=== PATIENT | male | born 1930 | race Caucasian/White ===

== ENCOUNTER 2017-01-08 21:55 | Observation (INO) | payer OTHER ==
[~2017-01-08] VITALS: Ht 175.3 cm; Wt 109.0 kg
[2017-01-08] MEDS ORDERED: HYDROmorphone INJ 1 MG/ML SYR IV STA (22:57)
--- NOTE | 2017-01-08 22:59 | EMERGENCY ROOM VISIT NOTE ---
History Report prepared by Marcelino: Mary Hyde Under the Supervision of: Dr. Melecio Bernal M.D. First contact with patient: 22:51 Chief Complaint: KNEEPAIN Stated Complaint: KNEE PAIN History of Present Illness The patient is a 86 year old male who presents to the Emergency Room with complaints of sudden right knee pain beginning shortly prior to arrival. He states that he fell on his knee. The patient denies hitting his head when he fell, and he also denies hip pain. 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 He also states that he has a history of a broken patella. He states that he is not on any blood thinners. He denies having other symptoms. Per his family, the patient has a history of a suicidal attempt on oxycodone. Source of History: patient, family Onset: shortly prior to arrival Position: knee (right) Quality: other (fall) Timing: other (sudden) Associated Symptoms: No fevers Review of Systems See HPI for pertinent positives & negatives. A total of 10 systems reviewed and were otherwise negative. Past Medical & Surgical Medical Problems: (1) Tibia/fibula fracture Surgical Problems: (1) Quadriceps muscle strain Family History No pertinent family history stated. Social History Smoking Status: Never Smoker Occupation Status: retired Current/Historical Medications Scheduled Diclofenac (Voltaren), 75 MG PO BID Docusate Sodium (Stool Softener), 100 MG PO DAILY Fentanyl (Fentanyl), Unknown Dose TD DIRECTED Fluoxetine (Prozac), 20 MG PO DAILY Furosemide (Lasix), 40 MG PO QAM Gabapentin (Neurontin), 300 MG PO QID Meloxicam (Mobic), 15 MG PO QPM Multivitamin (Multivitamin), 1 TAB PO DAILY Omeprazole (Prilosec), 40 MG PO HS Tamsulosin Hcl (Flomax), 0.4 MG PO HS Temazepam (Restoril), 30 MG PO HS Allergies Coded Allergies: No Known Allergies (Unverified , 01/09/17) Physical Exam Vital Signs Date Time Temp Pulse Resp B/P (MAP) Pulse Ox O2 Delivery O2 Flow Rate FiO2 01/09/17 01:08 76 16 161/86 99 Room Air 01/08/17 22:20 79 01/08/17 22:06 36.7 82 16 160/94 99 Room Air Physical Exam GENERAL: Patient is uncomfortable appearing and in moderate distress. HEENT: No acute trauma, normocephalic atraumatic, mucous membranes moist, no nasal congestion, no scleral icterus. NECK: No stridor, no adenopathy, no meningismus, trachea is midline. LUNGS: No dyspnea. Clear to auscultation and equal bilaterally. No wheeze, no rhonchi. HEART: Regular rate and rhythm. No murmurs, rubs, gallops appreciated. ABDOMEN: Soft, nontender, bowel sounds positive, no masses appreciated, no peritonitis. BACK: No midline tenderness, no CVA tenderness EXTREMITIES:Deformity of right knee with extensive swelling and bruising anteriorly. Severe pain with range of motion. Tenderness to palpation of right medial malleolus and pain with range of motion of ankle. NEUROLOGIC: Alert and oriented, no acute motor or sensory deficits, no focal weakness, cranial nerves grossly intact. SKIN: No rash, no jaundice, no diaphoresis. Medical Decision & Procedures ER Provider Diagnostic Interpretation: X-ray: Multiple view of knee, tibia, fibula, and ankle: Proximal and distal fibular fracture. Medial malleolus fracture. Appears to be mild separation of tibial plateau from anterior knee prostheses. Questionable bending of prostheses distally. No acute dislocations. Laboratory Results 01/08/17 20:13 Red Blood Count 4.47, Mean Corpuscular Volume 94.2, Mean Corpuscular Hemoglobin 31.5, Mean Corpuscular Hemoglobin Concent 33.5, Mean Platelet Volume 9.3, Neutrophils (%) (Auto) 68.4, Lymphocytes (%) (Auto) 23.0, Monocytes (%) (Auto) 6.8, Eosinophils (%) (Auto) 1.3, Basophils (%) (Auto) 0.2, Neutrophils # (Auto) 6.68, Lymphocytes # (Auto) 2.24, Monocytes # (Auto) 0.66, Eosinophils # (Auto) 0.13, Basophils # (Auto) 0.02 01/08/17 20:13 Test 01/08/17 20:13 White Blood Count 9.76 K/uL (4.8-10.8) Red Blood Count 4.47 M/uL (4.7-6.1) Hemoglobin 14.1 g/dL (14.0-18.0) Hematocrit 42.1 % (42-52) Mean Corpuscular Volume 94.2 fL (80-100) Mean Corpuscular Hemoglobin 31.5 pg (25-34) Mean Corpuscular Hemoglobin Concent 33.5 g/dl (32-36) Platelet Count 376 K/uL (130-400) Mean Platelet Volume 9.3 fL (7.4-10.4) Neutrophils (%) (Auto) 68.4 % Lymphocytes (%) (Auto) 23.0 % Monocytes (%) (Auto) 6.8 % Eosinophils (%) (Auto) 1.3 % Basophils (%) (Auto) 0.2 % Neutrophils # (Auto) 6.68 K/uL (1.4-6.5) Lymphocytes # (Auto) 2.24 K/uL (1.2-3.4) Monocytes # (Auto) 0.66 K/uL (0.11-0.59) Eosinophils # (Auto) 0.13 K/uL (0-0.5) Basophils # (Auto) 0.02 K/uL (0-0.2) RDW Standard Deviation 50.2 fL (36.4-46.3) RDW Coefficient of Variation 14.7 % (11.5-14.5) Immature Granulocyte % (Auto) 0.3 % Immature Granulocyte # (Auto) 0.03 K/uL (0.00-0.02) Anion Gap 9.0 mmol/L (3-11) Est Creatinine Clear Calc Drug Dose 31.7 ml/min Estimated GFR () 33.8 Estimated GFR (Non- 29.1 BUN/Creatinine Ratio 18.9 (10-20) Calcium Level 9.3 mg/dl (8.5-10.1) Chemistry Specimen Hemolysis Medications Administered Medications (Trade) Dose Ordered Sig/Marybeth Route Start Time Stop Time Status Last Admin Dose Admin Hydromorphone HCl (Dilaudid Inj) 1 mg NOW STAT IV 01/08/17 22:57 01/08/17 22:59 DC 01/08/17 23:05 1 MG ED Course 2255: The patient was evaluated in room C1. A complete history and physical exam was performed. 2257: Ordered Dilaudid Inj 1 mg IV. 0020: I updated the patient on his results, and discussed the treatment plan. 0040: Discussed the patient's case with Dr. Lima. The patient will be evaluated for further treatment and disposition. 0055: Dr. Lima asked that I talk to orthopedics. I checked on the patient and his family left because they could not stay here any longer. 0100: Discussed the patient's case with Dr. Whittington. Dr. Whittington agrees with immobilization and likely no surgical invention while here. He will be admitted to medicine. 0135: Dr. Whittington is at bedside. Medical Decision Differentials include: fracture, dislocation, contusion, and ligamentous injury. 86 yr old male s/p twist/fall to right lower leg without head/neck injury not other injuries. No TTP over hips. Clear swelling/bruising anterior right lower knee. TTP over ankle as well. Multiple fractures as noted in imaging. Ortho in to evaluate and will immobilize for now. Family unable to take him home and with his polio history and previous surgeries he will have significant ambulatory issues, on top of fact that with recent OD history I am a bit anxious about just sending him home with narcotics. As he can not ambulate and family unable to get him home will bring in for further work-up/monitoring/ evaluation. Basic labs reveal moderate renal insufficiency though this may be chronic and will defer to hospitalist for further evaluation. Medication Reconcilliation Current Medication List: was personally reviewed by me Blood Pressure Screening Patient's blood pressure: Elevated blood pressure will be monitored by hospitalist. Consults Time Called: 29 Consulting Physician: Dr. Lima - [facility] Returned Call: [phone] Discussed the patient's case. The patient will be evaluated for further treatment and disposition. Additional Consults: Time Called: 51 Consulted Physician: Dr. Whittington-[facility] Returned Call: [phone] Additional Comments: Discussed the patient's case with Dr. Whittington. Dr. Whittington agrees with immobilization and likely no surgical invention while here. He will be admitted to medicine. Impression Primary Impression: Knee fracture Additional Impression: Ankle fracture Scribe Attestation The scribe's documentation has been prepared under my direction and personally reviewed by me in its entirety. I confirm that the note above accurately reflects all work, treatment, procedures, and medical decision making performed by me. Departure Information Dispostion Being Evaluated By Hospitalist Patient Instructions [facility] Problem Qualifiers
[2017-01-09] MEDS ORDERED: TAMS0.4C38 PO (00:35)
[2017-01-09] MEDS ORDERED: FLUO20CA35 PO (00:35)
[2017-01-09] MEDS ORDERED: DRGTP50 TD (00:35)
[2017-01-09] MEDS ORDERED: OMEP40CA41 PO (00:35)
[2017-01-09] MEDS ORDERED: TEMA30CA4 PO (00:35)
[2017-01-09] MEDS ORDERED: FRS/40 PO (00:35)
[2017-01-09] MEDS ORDERED: MULT-506 PO (00:35)
[2017-01-09] MEDS ORDERED: MELO15TA10 PO (00:35)
[2017-01-09] MEDS ORDERED: DICL-201 PO (00:35)
[2017-01-09] MEDS ORDERED: GABA-113 PO (00:35)
[2017-01-09] MEDS ORDERED: DOCU100T7 PO (00:37)
[2017-01-09] MEDS ORDERED: ONDANSETRON INJ 2 MG/ML 2 ML VIAL IV PRN (01:30)
[2017-01-09 01:41] VITALS: Ht 175.3 cm; Wt 109.0 kg
--- NOTE | 2017-01-09 02:36 | ORTHOPEDIC CONSULTATION ---
DATE OF CONSULTATION: 01/08/2017 CHIEF COMPLAINT: Right leg pain. HISTORY OF PRESENT ILLNESS: An 86-year-old male who was brought to the Emergency Department as his family was traveling to [facility] to get to a camp. The patient states that he fell backwards, trapping his leg underneath the car and felt pain in his ankle and his knee. He has a very complicated right knee history that involves multiple procedures including multiple attempts at extensor mechanism reconstruction and quadriceps reconstruction, has a history of knee replacement with stems and history of patella fracture. He notes that at this point in time he has no significant hip pain. He denies any head or neck injury. PAST MEDICAL HISTORY: Remarkable for: 1. Multiple knee surgeries. 2. History of suicidal attempt with oxycodone. REVIEW OF SYSTEMS: Reveals no chest pain, shortness of breath, fever, chills, nausea or vomiting. FAMILY HISTORY: Noncontributory. Family is not here with him. SOCIAL HISTORY: He does not smoke. He is retired. PREADMISSION MEDICATIONS: Include diclofenac 75 mg p.o. b.i.d., Colace 100 mg p.o. b.i.d., fentanyl unknown dose, Prozac 20 mg daily, Lasix 40 mg daily, gabapentin 300 mg q.i.d., meloxicam 15 mg daily, multivitamin, Prilosec 40 mg at bedtime, Flomax 0.4 mg at bedtime, Restoril 30 mg p.o. at bedtime. ALLERGIES: None. PERTINENT PHYSICAL EXAMINATION: GENERAL: Reveals the patient can converse well. He denies any head trauma. HEENT: Without trauma. CHEST: Nontender. ABDOMEN: Soft, nontender. EXTREMITIES: Both upper extremities without any pain. Left lower extremity without any pain. Right lower extremity reveals no obvious deformity. Knee is flexed, has bruising over the anterior proximal tibia. Has pain along the medial and lateral malleoli. Neurovascular check is grossly normal. Achilles tendon is normal. Anterior and posterior tibial tendons normal. EHL and FHL intact. X-RAYS: Multiple views taken today of the ankle reveal a Bone B type fracture pattern, nondisplaced. There is comminution of the medial malleolus. AP and lateral of the tibia reveals no shaft fracture. AP and lateral of the knee reveals a revision-type stem implant, has extensor mechanism abnormalities with scarring and patella baja. There is tubercle calcification which is of unclear significance based on the multiple procedures he has had. He can straighten the knee without any difficulty to about 15 degrees of flexion. Log rolling of the leg does not produce any significant groin pain. ASSESSMENT: Bone B type fracture pattern of the ankle, nonoperative candidate, minimally displaced. At this point in time, treat with coaptation splint for swelling and then ultimately in a cast when he gets back home. With respect to his extensor mechanism, he more than likely has either a soft tissue disruption of his previous reconstruction or has a bony avulsion. He would need to have old x-rays compared with. At this point in time, suggest treatment in a knee immobilizer for this extensor mechanism injury. Do not suggest any surgical treatment here. He could be transferred back to home and have him taken care of by his home orthopedist. They would be able to compare x-rays and determine whether there is any change in the implant. The logic on this is also the fact that this implant is not available here at this hospital, and if there are any issues, he would need to have things adjusted or changed. At the same time, if he decided to have a surgical procedure, based on their findings, it would be more appropriate for it to be done in his home location. Deep vein thrombosis prophylaxis per medicine. Follow up with me on a p.r.n. basis. ADDENDUM: PAST MEDICAL AND PAST SURGICAL HISTORY: Remarkable for chest surgery on right, low back surgery for spinal stenosis, left leg calf surgery for some type of soft tissue mass, multiple knee procedures including partial patellectomy, extensor mechanism augmentation and reconstruction with hamstring transfer, knee replacement. Advised using anti-inflammatories, not to mix Voltaren and Mobic. Suggest discontinue one completely. Coaptation splint applied, knee immobilizer applied , the patient much more comfortable. Allow full diet. Once again, also has a history of polio in the right leg and describes having drop locked hinges braced in the past used for his leg weakness. This clearly is a chronic problem aggravated by his recent fall, and again, at this point in time without old records, nonsurgical management is indicated, particularly with the complexity of his knee replacement, his hamstring transfers, his partial patellectomy in the past, and weakness of his leg with polio. Suggest nonsurgical management for all areas. Transport back home. No need to remain here. From orthopedic perspective, can be discharged when transportation to home arranged. Allow food as tolerated. MTDD
[2017-01-09 02:41] LABS: BASO % 0.2 %; BASO ABS # 0.02 K/uL (0-0.2); COMPLETE YES; EOS % 1.3 %; HEMATOCRIT 42.1 % (42-52); IG% 0.3 %; LYMPH ABS # 2.24 K/uL (1.2-3.4); MEAN CELL VOLUME 94.2 fL (80-100); MEAN CORPUSCULAR HEMOGLOBIN 31.5 pg (25-34); MEAN CORPUSCULAR HGB CONC 33.5 g/dl (32-36); MEAN PLATELET VOLUME 9.3 fL (7.4-10.4); MONO % 6.8 %; NEUT % 68.4 %; PLATELET COUNT 376 K/uL (130-400); RED BLOOD COUNT 4.47 M/uL (4.7-6.1); WHITE BLOOD COUNT 9.76 K/uL (4.8-10.8)
[2017-01-09 03:00] LABS: BUN/CREATININE RATIO 18.9 (10-20); CALCIUM 9.3 mg/dl (8.5-10.1)
[2017-01-09 03:10] VITALS: BP 141/95; PULSE 70; TEMP 36.9; O2SAT 92
[2017-01-09] MEDS: LACTATED RINGER'S 1000ML 1,000 ML IV SCH ×2 (03:21→17:15)
[2017-01-09] MEDS: ACETAMINOPHEN 325 MG TAB PO PRN ×2 (03:26→17:21)
[2017-01-09] MEDS ORDERED: IV FLUIDS COMPLETED PRN (03:45)
--- NOTE | 2017-01-09 03:51 | History and Physical ---
History & Physical Date & Time of Service: Jan 09, 2017 at 02:47 Chief Complaint: Knee Pain Primary Care Physician: No Doctor, Assigned History of Present Illness Source: patient, hospital records Mr Martínez is an 86 year old male with pertinent history of polio in his right leg aged 10 years old who presents to the ER after falling into his car. He denies any prodromal symptoms including shortness of breath, chest pain, dizziness before the fall. He caught his right ankle on the car and tripped up so that his ankle was hyper plantar flexed and his right knee was flexed ( beyond its normal poor range of motion). After which he is mainly complaining of pain in his right ankle and knee (distal to patellar). He denies hitting his head, neck, back or hip/groin pain. He denies any current chest pain, shortness of breath, dizziness, wrist pain, change in vision, speech or hearing. He has a history of multiple knee surgeries including total knee replacement, revisions and quadriceps transplant. As from the ER note his family report the patient previously had a suicide attempt on oxycodone. Past Medical/Surgical History Surgical Problems: (1) Quadriceps muscle strain Status: Resolved Family History Noncontributory Social History Smoking Status: Former Smoker Occupational Status: retired Immunizations History of Influenza Vaccine: Unknown History of Tetanus Vaccine?: Unknown History of Pneumococcal: Unknown History of Hepatitis B Vaccine: Unknown Multi-Drug Resistant Organisms History of MDRO: No Allergies Coded Allergies: No Known Allergies (Unverified , 01/09/17) Home Medications Scheduled Aspirin (Aspirin 81), 81 MG PO BID Docusate Sodium (Stool Softener), 100 MG PO DAILY Fentanyl (Fentanyl), Unknown Dose TD DIRECTED Fluoxetine (Prozac), 20 MG PO DAILY Furosemide (Lasix), 40 MG PO QAM Gabapentin (Neurontin), 300 MG PO QID Multivitamin (Multivitamin), 1 TAB PO DAILY Omeprazole (Prilosec), 40 MG PO HS Tamsulosin Hcl (Flomax), 0.4 MG PO HS Temazepam (Restoril), 30 MG PO HS Review of Systems Constitutional: No fever, No chills Eyes: No worsening of vision ENT: + problem reported (dry throat), No hearing loss Respiratory: No cough, No shortness of breath Cardiovascular: No chest pain, No orthopnea, No edema Abdomen: No pain, No nausea, No vomiting, No diarrhea, No constipation, No GI bleeding Musculoskeletal: + joint pain, + muscle pain Genitourinary - Male: No hematuria Hematologic / Lymphatic: No abnormal bleeding/bruising Integumentary: No rash, No itch Physical Exam Vital Signs Date Time Temp Pulse Resp B/P (MAP) Pulse Ox O2 Delivery O2 Flow Rate FiO2 01/09/17 02:17 75 16 164/71 99 01/09/17 01:41 Room Air 01/09/17 01:08 76 16 161/86 99 Room Air 01/08/17 22:20 79 01/08/17 22:06 36.7 82 16 160/94 99 Room Air General Appearance: WD/WN, no apparent distress Head: normocephalic, atraumatic Eyes: normal inspection (pupils equal), EOMI Respiratory/Chest: chest non-tender, lungs clear, normal breath sounds, no respiratory distress, no accessory muscle use Cardiovascular: regular rate, rhythm, no murmur, normal peripheral pulses Abdomen/GI: normal bowel sounds, non tender, soft Extremities/Musculoskelatal: no calf tenderness, normal capillary refill, + pedal edema (1+ b/l ankles), + pertinent finding (bruising over right patella tendon with significant pain on passive flex/ext of right knee, pain on lateral and medial malleolus) Neurologic/Psych: no motor/sensory deficits (neurologically intact distal to fracture), alert, oriented x 3 Skin: normal color, warm/dry, no rash Diagnostics Laboratory Results Results Past 24 Hours Test 01/08/17 20:13 Range/Units White Blood Count 9.76 4.8-10.8 K/uL Red Blood Count 4.47 4.7-6.1 M/uL Hemoglobin 14.1 14.0-18.0 g/dL Hematocrit 42.1 42-52 % Mean Corpuscular Volume 94.2 80-100 fL Mean Corpuscular Hemoglobin 31.5 25-34 pg Mean Corpuscular Hemoglobin Concent 33.5 32-36 g/dl Platelet Count 376 130-400 K/uL Mean Platelet Volume 9.3 7.4-10.4 fL Neutrophils (%) (Auto) 68.4 % Lymphocytes (%) (Auto) 23.0 % Monocytes (%) (Auto) 6.8 % Eosinophils (%) (Auto) 1.3 % Basophils (%) (Auto) 0.2 % Neutrophils # (Auto) 6.68 1.4-6.5 K/uL Lymphocytes # (Auto) 2.24 1.2-3.4 K/uL Monocytes # (Auto) 0.66 0.11-0.59 K/uL Eosinophils # (Auto) 0.13 0-0.5 K/uL Basophils # (Auto) 0.02 0-0.2 K/uL RDW Standard Deviation 50.2 36.4-46.3 fL RDW Coefficient of Variation 14.7 11.5-14.5 % Immature Granulocyte % (Auto) 0.3 % Immature Granulocyte # (Auto) 0.03 0.00-0.02 K/uL Impression Assessment and Plan 86 year old male presents with ankle fracture s/p mechanical fall Bone B type fracture of right ankle - appreciate orthopedic recommendations - conservative management with knee immobilizer, non weight bearing on that leg Fall - history of multiple falls due to chronic pain in his legs and buckling - no concerning features to suggest cardiac or neurological syncope/presyncope Attending Addendum: I have physically seen and examined this patient, have directed the resident's medical activities, and agree with the H&P as noted above with the following exceptions as noted. The patient is awake, alert and oriented 3, well-developed and well-nourished, normocephalic and atraumatic, lying in bed and in no acute distress while lying still. HEENT--PERRL, EOMI, mucous membranes and oropharynx dry. Neck--supple, no JVD or bruits, thyroid normal, trachea midline, no adenopathy. Heart--normal S1 and S2, no extra beats, no murmurs, rubs or gallops. Lungs--clear bilaterally with good air movement, no respiratory distress, no accessory muscle use. Abdomen--normal bowel sounds and soft, nontender and nondistended, no hernias or masses, no organomegaly. Extremities--no cyanosis, clubbing or edema. There are good distal pulses b/l. Dermatologic--normal skin turgor, normal color, warm and dry, no abnormal lymph nodes, no rash. Neurologic--cranial nerves II through XII grossly intact, motor and sensory examination normal. Rheumatologic--reproducible pain over right anterior tibial tuberosity, and medial and lateral malleolus of right ankle. He is a is a Psychiatric--normal affect. Assessment and Plan: Right ankle fracture/status post right total knee arthroplasty with loosening-- Admitted to the medical floor overnight for pain control. Conservative management with knee immobilizer, nonweightbearing, as per orthopedic recommendation. Definitive therapy by his [facility] orth[facility]ist when he returns there tomorrow. Chronic pain management-- Continue fentanyl, gabapentin and Mobic. GERD-- Change omeprazole to pantoprazole. BPH-- Continue tamsulosin 0.4 mg by mouth at bedtime. Insomnia/depression-- Continue Restoril 30 mg by mouth at bedtime and fluoxetine 20 mg by mouth daily. Fluid balance-- Hold furosemide. Level of Care Med/Surg Advanced Directives Existing Advance Directive: No Existing Living Will: Yes Existing Power of Field Producer: Yes Resuscitation Status FULL RESUSCITATION VTE Prophylaxis VTE Risk Assessment Done? Y/N: Yes Risk Level: Moderate Given or contraindicated: Enoxaparin (Lovenox)SQ Social Service Consult None Apply
[2017-01-09 07:00] VITALS: BP 134/81; PULSE 63; TEMP 36.6; O2SAT 94
--- NOTE | 2017-01-09 07:09 | DIAGNOSTIC IMAGING REPORT ---
R TIBIA/FIBULA 2 VIEWS ROUTINE, R KNEE 1 OR 2 VIEWS ROUTINE HISTORY: 86 years-old Male right knee-ankle pain/swelling s/p fall. ho tibial/patellar fx acute right leg pain status post fall COMPARISON: None available TECHNIQUE: 2 views of the right knee and 2 views of the right tibia and fibula. FINDINGS: KNEE: Hinged right knee arthroplasty is present. The bones are moderately demineralized. There is acute periprosthetic fracture with 4.7 cm bone fragment of the anterolateral proximal tibia displaced proximally x 1.5 cm. Moderate soft tissue swelling is noted about the knee with large joint effusion. TIBIA/FIBULA: Acute periprosthetic fracture of the proximal tibia as above. Additionally, there is an acute oblique fracture of the distal fibular diaphysis which is nondisplaced. There is a linear lucency of the medial malleolus seen on the frontal view oh suspicious for acute nondisplaced fracture. There is moderate soft tissue swelling about the lower extremity. Degenerative changes are seen throughout the hindfoot. IMPRESSION: 1. Hinged right knee arthroplasty in place with an acute periprosthetic fracture of the proximal tibia as above with soft tissue swelling and large knee joint effusion. 2. Acute nondisplaced oblique fracture of the distal fibular diaphysis. 3. Linear lucency of the medial malleolus suspicious for acute nondisplaced fracture. The above report was generated using voice recognition software. It may contain grammatical, syntax or spelling errors. Electronically signed by: Reza Stallworth M.D. 01/09/2017 7:08 AM Dictated Date/Time: 01/09/2017 7:02 AM
--- NOTE | 2017-01-09 07:15 | DIAGNOSTIC IMAGING REPORT ---
L ANKLE MIN 3 VIEWS ROUTINE, R ANKLE MIN 3 VIEWS ROUTINE HISTORY: 86 years-old Male left lateral malleolus pain s/p fall ?# Acute bilateral ankle pain status post fall COMPARISON: Right tibia and fibula radiographs of same day TECHNIQUE: 3 views of the right ankle and 3 views of the left ankle FINDINGS: LEFT: The bones are mildly demineralized. No acute fracture, or dislocation identified. There is spurring about the calcaneus. Mild midfoot degenerative changes. Linear dystrophic calcifications in the region of the plantar fascia suggest chronic plantar fasciitis. Vascular calcifications are seen. Mild diffuse soft tissue swelling. RIGHT: Acute oblique mildly comminuted fracture of the distal fibular diaphysis is noted with 2 mm lateral displacement fracture extends to the level of the ankle mortise and into the distal tibiofibular syndesmosis. Comminuted medial malleolus fracture is present with approximately 2 mm medial displacement. No definite talar fracture identified. Large ankle joint effusion with moderate soft tissue swelling. Basilar calcifications are noted. There is spurring about the calcaneus with dystrophic calcifications seen within the region of the plantar fascia compatible with chronic plantar fasciitis. IMPRESSION: 1. Acute comminuted minimally displaced right medial malleolus fracture. 2. Acute minimally displaced comminuted oblique fracture of the distal right fibular shaft extends to level of the ankle mortise into the distal tibiofibular syndesmosis. 3. No acute fracture or dislocation identified within the left ankle. The above report was generated using voice recognition software. It may contain grammatical, syntax or spelling errors. Electronically signed by: Reza Stallworth M.D. 01/09/2017 7:13 AM Dictated Date/Time: 01/09/2017 7:09 AM
--- NOTE | 2017-01-09 07:19 | DIAGNOSTIC IMAGING REPORT ---
PELVIS/BILATERAL HIP 2 VIEWS HISTORY: 86 years-old Male right knee pain on hip rotation s/p fall ?# Acute right knee pain status post fall COMPARISON: None available TECHNIQUE: AP view of the pelvis with 2 views of the bilateral hips FINDINGS: The bones are mildly demineralized. Severe intervertebral disc space narrowing with endplate spurring and facet arthropathy is seen within the lower lumbar spine. 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 No acute fracture or dislocation identified. IMPRESSION: 1. No acute fracture or dislocation within the pelvis or bilateral hips. 2. 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 The above report was generated using voice recognition software. It may contain grammatical, syntax or spelling errors. Electronically signed by: Reza Stallworth M.D. 01/09/2017 7:17 AM Dictated Date/Time: 01/09/2017 7:14 AM
[2017-01-09] MEDS ORDERED: KETOROLAC TROMETHAMINE 15 MG/ML VIAL IV PRN (07:45)
[2017-01-09] MEDS ORDERED: KETOROLAC TROMETHAMINE 15 MG/ML VIAL IM PRN (07:45)
[2017-01-09] MEDS: CHECK FENTANYL PATCH PLACEMENT SCH ×2 (08:22→15:37)
[2017-01-09] MEDS: GABAPENTIN 300 MG CAP PO SCH ×3 (08:23→17:15)
--- NOTE | 2017-01-09 08:27 | ORTHOPEDICS PROGRESS NOTE ---
DATE: 01/09/2017 SUBJECTIVE: The patient is sitting up in bed, conversing with nurse and converses with me. He is alert and oriented x3. He denies chest pain, shortness of breath, fever, chills, nausea, vomiting or headache. Vital signs are stable. He is afebrile. Complains of pain down at the ankle and about the knee, but that is not severe. He denies any numbness or tingling. Neurovascular check of both lower extremities within normal limits. Additional x-rays taken yesterday of the hip reveal some osteoarthritis. No other issues. LABORATORY WORK: Reveals a hematocrit to be stable at 42. Chemistry does not reveal any significant issues . BUN is high at 38 and creatinine is 2. Orthopedic exam reveals no issues with both upper extremities. Head and neck are fine. Back is fine. Abdomen is soft and nontender. Left lower extremity without any issues of acute trauma. Right lower extremity is in the splint at the ankle and the knee immobilizer. There is nothing new. Neurovascular check of his right lower extremity reveals intact sciatic nerve function and sensation and motor. ASSESSMENT: 1. Complicated patient with a history of poliomyelitis, multiple knee surgeries with periprostatic fracture of his right knee that is minimally displaced. At this point in time, he can transport home for that to have it dealt with. He can have a compare with the x-rays that would reveal some of the difficulty on this case based on the multiple surgeries and extensor mechanism procedures and partial patellectomy that he had. 2. Minimally displaced bimalleolar ankle fracture with intact ankle mortise. At this point in time, this problem will be treated nonsurgically as well. He can be discharged home with that today as well. Plan is to follow up with me on a p.r.n. basis and he has local orthopedist. DVT prophylaxis per medicine. Strict nonweightbearing of right lower extremity with walker. ALEX
[2017-01-09] MEDS ORDERED: FUROSEMIDE 40 MG TAB PO SCH (09:00)
[2017-01-09] MEDS ORDERED: MULTIVITAMIN TAB PO SCH (09:00)
[2017-01-09] MEDS ORDERED: FLUOXETINE HCL 20 MG CAP PO SCH (09:00)
[2017-01-09] MEDS ORDERED: DOCUSATE SODIUM 100 MG CAP PO SCH (09:00)
[2017-01-09] MEDS ORDERED: PANTOprazole SOD 40 MG TAB PO SCH (09:00)
[2017-01-09 10:48] LABS: HEMATOCRIT 35.4 % (42-52); MEAN CELL VOLUME 93.9 fL (80-100); MEAN CORPUSCULAR HGB CONC 33.1 g/dl (32-36); MEAN PLATELET VOLUME 8.4 fL (7.4-10.4); PLATELET COUNT 286 K/uL (130-400); RED BLOOD COUNT 3.77 M/uL (4.7-6.1); WHITE BLOOD COUNT 9.62 K/uL (4.8-10.8)
[2017-01-09 10:58] LABS: PROTHROMBIN TIME (PATIENT) 10.7 SECONDS (9.0-12.0)
[2017-01-09] MEDS ORDERED: HEPARIN SOD 5000 UNIT/0.5 ML CARP SQ SCH (11:00)
[2017-01-09] MEDS ORDERED: ASPI-435 PO ×2 (12:28→12:40)
--- NOTE | 2017-01-09 12:39 | Discharge Instructions ---
Discharge Instructions Date of Service Jan 09, 2017. Admission Reason for Admission: Tibia/Fibula Fracture Discharge Discharge Diagnosis / Problem: Ankle Fracture Discharge Goals Goal(s): Decrease discomfort, Improve function Activity Recommendations Activity Limitations: per Instructions/Follow-up section . Instructions / Follow-Up Instructions / Follow-Up You were admitted to [facility] following a fall onto your right knee and ankle. You sustained an ankle fracture because of this, and also possible displacement or disruption of your previous right knee reconstruction. Due to the fact that we do not have your xrays or surgical history, we advise that you return to [place] and see your usual orthopedist for management. You do not require surgery for your ankle fracture, and have been placed in a coaptation splint for now, to be changed to a cast when you return home. Given the fact that you will be off your feet for the next little while, we recommend you take an 81mg aspirin twice a day to prevent the formation of a blood clot. You can stop taking this once you start moving around again. You can take all your other medications as prescribed. Please also hold your diclofenac and meloxicam until your regular primary care provider rechecks your kidney function tests and they have returned to normal, as your creatinine in the hospital was elevated at 2. Current Hospital Diet Patient's current hospital diet: Regular Diet Discharge Diet Recommended Diet: Regular Diet Pending Studies Studies pending at discharge: no Medical Emergencies . Who to Call and When: Medical Emergencies: If at any time you feel your situation is an emergency, please call 911 immediately. . Non-Emergent Contact Non-Emergency issues call your: Primary Care Provider . . "Provider Documentation" section prepared by Jr Cruz. . VTE Core Measure Inpt VTE Proph given/why not?: Enoxaparin (Lovenox)SQ
[2017-01-09] MEDS ORDERED: ACETAMINOPHEN 500 MG TAB PO SCH (14:00)
[2017-01-09 14:33] VITALS: BP 134/81; PULSE 63; TEMP 36.6; O2SAT 94
[2017-01-09 14:42] VITALS: BP 160/78; PULSE 88; O2SAT 98
--- NOTE | 2017-01-09 15:03 | Discharge Summary ---
Discharge Summary Date of Service Jan 09, 2017. (Jr Cruz M.D.) Discharge Summary Admission Date: Jan 09, 2017 at 01:25 Discharge Date: Jan 09, 2017 Discharge Disposition: Home Principal Diagnosis: Bone B type fracture of right ankle (Jr Cruz M.D.) Medication Reconciliation New Medications: Aspirin (Aspirin 81) 81 Mg Tab 81 MG PO BID, #30 TABS 2 Refills Continued Medications: Docusate Sodium (Stool Softener) 100 Mg Tab 100 MG PO DAILY Fentanyl (Fentanyl) Unknown Strength Tdsy Unknown Dose TD DIRECTED Fluoxetine (Prozac) 20 Mg Cap 20 MG PO DAILY, CAP Furosemide (Lasix) 40 Mg Tab 40 MG PO QAM, TAB Gabapentin (Neurontin) 300 Mg Cap 300 MG PO QID, CAP Multivitamin (Multivitamin) Tab 1 TAB PO DAILY, TAB Omeprazole (Prilosec) 40 Mg Cap 40 MG PO HS, CAP Tamsulosin Hcl (Flomax) 0.4 Mg Cap 0.4 MG PO HS, CAP Temazepam (Restoril) 30 Mg Cap 30 MG PO HS, CAP Discontinued Medications: Diclofenac (Voltaren) 75 Mg Tabcr 75 MG PO BID, TAB WITH FOOD Meloxicam (Mobic) 15 Mg Tab 15 MG PO QPM, TAB Discharge Exam Mr. Martínez reports that he feels well today, but is upset about having sustained another fall. He states his pain is well controlled, and that he is ready to be discharged home to follow up with his orthopedist.He denies chest pain, shortness of breath or cough. Review of Systems: Constitutional: No fever, No chills, No sweats, No weight loss Respiratory: No cough, No sputum, No wheezing Cardiovascular: No chest pain Abdomen: No pain, No nausea, No vomiting, No diarrhea, No constipation Physical Exam: General Appearance: WD/WN, no apparent distress Respiratory/Chest: chest non-tender, lungs clear, normal breath sounds, no respiratory distress, no accessory muscle use Cardiovascular: regular rate, rhythm, no edema, no gallop, no JVD, no murmur Abdomen / GI: non tender, soft (Jr Cruz M.D.) Hospital Course Mr. Martínez was admitted to [facility] due to a fall onto his right knee and ankle. He tripped while entering his car, and sustained a Bone B type fracture of his right ankle. He also has a history of multiple right knee surgeries including a total knee replacement, revisions and a quadriceps transplant. He xrays showed possible displacement/tissue disruption of his previous right knee reconstruction and therefore it was recommended by ortho that he return to [place] to see his usual orthopedist for management. He did not require surgery for his ankle fracture, and was placed in a coaptation splint for now, to be changed to a cast when he returns home. He was also given 81mg of aspirin BID for DVT prophylaxis, as opposed to heparin , because of his renal function. He was told to hold his diclofenac and meloxicam pending improvement in his creatinine level (was 2 today) and was told to follow up with his primary care physician regarding rechecking a BMP. Total Time Spent: Less than 30 minutes This includes examination of the patient, discharge planning, medication reconciliation, and communication with other providers. (Jr Cruz M.D.) Resident Physician Supervision Note: I interviewed and examined the patient. Discussed with Dr. Cruz and agree with findings and plan as documented in the note. Any exceptions or clarifications are listed here: None Documented By: Curt Ko feeling OK wants to go home. PT eval done. pt notes no problems getting in with ortho at home vitals noted nad breathing unlabored ankle fx - stable for outpt f/u ?CKD3 - uncertain baseline but nothign clinical w appearance of acuity. PCP f/ u and repeat BMP this week at home, avoid NSAIDs DVT proph - for now asa 81mg bid, ongoing as per PCP and ortho f/u stable for discharge (Curt Ko, Caleb.) Discharge Instructions Please refer to the electronic Patient Visit Report (Discharge Instructions) for additional information. (Jr Cruz M.D.)
[2017-01-09 15:21] VITALS: BP 157/77; PULSE 75; TEMP 37.1; O2SAT 94
[2017-01-09] MEDS ORDERED: ACETAMINOPHEN 325 MG TAB ONE (17:19)
[2017-01-09] MEDS ORDERED: TEMAZEPAM 15 MG CAP PO SCH (21:00)
[2017-01-09] MEDS ORDERED: TAMSULOSIN HCL 0.4 MG CAP PO SCH (21:00)
[2017-01-11] MEDS ORDERED: FENTANYL 75 MCG/HR TDSY TD SCH (08:00)
== END 2017-01-09 18:50 | disposition home or self-care (01) ==
LOC: C.EDC 21:58 → C.MSN 01-09 01:25 → ENRESERV 01-09 01:37
PROVIDERS: ADMIT Hospitalist; ATTEND Family Medicine
DX: S82.101A Unspecified fracture of upper end of right tibia, initial encounter for closed fracture (principal); S82.874A Nondisplaced pilon fracture of right tibia, initial encounter for closed fracture; S82.51XA Displaced fracture of medial malleolus of right tibia, initial encounter for closed fracture; S82.451A Displaced comminuted fracture of shaft of right fibula, initial encounter for closed fracture; W19.XXXA Unspecified fall, initial encounter; Z91.5 Personal history of self-harm; Z87.81 Personal history of (healed) traumatic fracture; Z96.651 Presence of right artificial knee joint; K21.9 Gastro-esophageal reflux disease without esophagitis; N40.0 Benign prostatic hyperplasia without lower urinary tract symptoms; F32.9 Major depressive disorder, single episode, unspecified; G47.00 Insomnia, unspecified